=== PATIENT | male | born 1955 | race Caucasian/White ===

== ENCOUNTER 2016-10-30 19:39 | Day surgery (SDC) | payer BC ==
[2016-10-30] MEDS ORDERED: PENICILLIN V P500 M1 PO (19:51)
[2016-10-30] MEDS ORDERED: AMOXICILLIN875 M1 PO (20:12)
[2016-10-31 11:26] LABS: BASO % 0.5 % (0-2); EOSINOPHIL ABSOLUTE COUNT 0.2 tho/cmm (0.0-0.7); HCT-HEMATOCRIT 42.5 % (36.0-53.5); IMMATURE GRANULOCYTES ABSOLUTE 0.01 tho/cmm (0-0.03); IMMATURE GRANULOCYTES PERCENT 0.1 % (0-0.3); LYMPH % 37.8 % (20-45); LYMPH ABSOLUTE COUNT 2.8 tho/cmm (0.8-4.5); MCH (MEAN CORPUSCULAR HGB) 30.1 pg (28.0-32.0); MCHC MEAN CORPUSCULAR HGB CONC 35.3 % (32.0-36.0); MCV (MEAN CELL VOLUME) 85.2 fl (82.0-96.0); MEAN PLATELET VOLUME 10.2 cmc (9.4-12.4); MONO % 6.4 % (0-12); MONOCYTE ABSOLUTE COUNT 0.5 tho/cmm (0.0-1.2); NEUTROPHIL ABSOLUTE COUNT 3.9 tho/cmm (1.6-8.0); NEUTROPHIL-AUTOMATED 3.9 tho/cmm (1.6-8.0); NEUTROPHILS % 53.2 % (40-80); PLATELET COUNT 194 tho/cmm (150-450); RED BLOOD COUNT 4.99 mil/cmm (4.40-5.70); RED CELL DISTRIBUTION WIDTH 12.9 % (12.4-16.4); WHITE BLOOD COUNT 7.3 tho/cmm (4.0-10.0)
[2016-10-31] MEDS ORDERED: AUGMENTIN 875-1 EAC2 PO (12:05)
[2016-10-31] MEDS ORDERED: FARXIGA5 M1 PO (12:05)
[2016-10-31] MEDS ORDERED: MULTIPLE VITAM1 EAC3 PO (12:06)
== END 2016-10-31 17:00 ==
LOC: EDMED 19:39 → SRG 10-31 10:06 → SHSB 10-31 10:08 → ORE 10-31 14:05
PROVIDERS: Otolaryngology
PROC: 0W3Q7ZZ Control Bleeding in Respiratory Tract, Via Natural or Artificial Opening (ICD-10-PCS; principal; 2016-10-31)
DX: R04.0 Epistaxis (principal); E11.8 Type 2 diabetes mellitus with unspecified complications; Z79.899 Other long term (current) drug therapy; Z98.890 Other specified postprocedural states